=== PATIENT | female | born 1950 | race Caucasian/White ===

== ENCOUNTER 2018-08-22 08:31 | Day surgery (SDC) | payer MEDICARE, OTHER, SELFPAY ==
[2018-08-07 09:50] VITALS: BMI 33.6
--- NOTE | 2018-08-15 08:51 | HP_ITS ---
Intake Vital Signs 08/07/18 Height 5 ft 2 in 08/07/18 Weight: 184 lb 08/07/18 Body Mass Index (BMI) 33.6 08/07/18 Blood Pressure 130/79 H 08/07/18 Blood Pressure Location Rt brachial 08/07/18 Blood Pressure Position Sitting 08/07/18 Respiratory Rate 14 08/07/18 Pulse Rate 67 08/07/18 Pulse Source Monitor 08/07/18 Temperature 98.2 F 08/07/18 Temperature Source Oral 08/07/18 Pulse Ox 96 08/07/18 Oxygen Delivery Method room air Intake Visit Reasons: Positive Cologuard Support Representative Required: No Is patient in pain?: No Allergies ketotifen [From Zaditor] Allergy (Unknown, Verified 08/07/18 09:51) Unknown codeine Allergy (Verified 04/09/14 08:33) Unknown Medications Multivitamins,Therapeutic [Multivitamin] 1 tab PO DAILY 02/08/13 [History Confirmed 08/07/18] Ibuprofen [Motrin] 200 mg PO Q6H PRN PRN #1 02/21/13 [Rx Confirmed 08/07/18] calcium carbonate-vitamin D3 600 mg (1,500 mg)-400 unit capsule 1 cap PO DAILY cap 08/07/18 [History Confirmed 08/07/18] cod liver oil capsule 1 cap PO DAILY 08/07/18 [History Confirmed 08/07/18] garlic 1,000 mg capsule 1,000 mg PO QPC 08/07/18 [History Confirmed 08/07/18] omega-3 fatty acids 1,000 mg capsule 3,000 mg PO DAILY cap 08/07/18 [History Confirmed 08/07/18] PFSH Medical History Arthritis (Acute) Prediabetes (Acute) Hepatitis B (Acute) Lazy eye of left side (Acute) Cervical dysplasia (Acute) DJD (degenerative joint disease) (Acute) Surgical History Hx of appendectomy (Acute) Hx of bilateral hip replacements (Acute) History of surgery on arm (Acute) History of (Acute) History of cone biopsy of cervix (Acute) Family History Brother Heart disease Son Thyroid disorder Sister Thyroid disorder Father Heart disease Social History Smoking Status: Never smoker second hand exposure: No alcohol intake: current alcohol intake frequency: holidays/special occasions only substance use type: does not use caffeine: Yes what type of physical activity do you participate in: none frequency: does not exercise HPI HPI HPI: TERRENCE MERIDA, is a 67 F who presents to the office today for HPI HPI Surgical H&P: Yes HPI: TERRENCE MERIDA, is a 67 F who presents to the office today for evaluation of a positive Cologuard test. Patient has not had any change in her bowel or bladder habits she has not noticed any rectal bleedings her weight has been stable ROS General General: No weight change, appetite, fatigue, colon cancer, breast cancer or weakness HEENT HEENT: No difficulty swallowing, eye injury, eye surgery, swollen glands or hoarseness Endo Endocrine: No thyroid disease, diabetes mellitus, thyroid cancer, Hair loss, heat intolerance or cold intolerance Skin Skin: No rash or changing moles Musc Musculoskeletal: Yes arthritis; no back problems, rheumatoid arthritis, gout or joint pain Cardio Cardiovascular: No murmur, pacemaker, heart disease, atrial fibrillation, high blood pressure, heart attack, heart stent, palpitations, shortness of breat with exertion or chest pain Psych Psychiatric: No depression, anxiety or hearing voices Resp Respiratory: No shortness of breath, No sleep apnea, No cough, No COPD, No asthma, No emphysema, No wheezing Gastro Gastrointestinal: No abdominal pain, No nausea or vomiting, No diarrhea, No constipation, No blood in stool, No acid reflux, No hemorrhoids, No ulcers, No gallbladder problem, No black,tarry stools [place] Hematologic: No blood thinners, No blood disorders, No bleeding, No anemia, No blood clots Neuro Neurologic: No system reviewed and no additional complaints, except as docu, No as per HPI, No abnormal walking, No abnormal hearing, No abnormal movements, No abnormal speech, No behavioral changes, No burning sensations, No confusion, No seizure-like activity, No unsteadiness, No dizziness, No localized weakness, No frequent falls, No headache(s), No lack of coordination, No loss of vision, No memory loss, No numbness, No other visual disturbances, No radiating pain, No restless legs, No sensory deficit, No fainting, No tingling, No tremor(s), No weakness, No other Exam Const General: no acute distress, well developed, well hydrated Orientation: oriented to person, oriented to place, oriented to time [facility] Head: normocephalic, atraumatic Ears: external ears normal Mouth: moist mucous membranes Eyes Sclera: sclerae normal Pupils: normal by confrontation Neck Neck: no lymphadenopathy noted Neck mass: No Thyroid: thyroid normal, symmetrical Chest Chest palpation & inspection: normal inspection of the chest Resp Effort & Inspection: normal respiratory effort Auscultation: clear to auscultation bilaterally Percussion: percussion normal Cardio Rate: regular rate Rhythm: regular rhythm Heart Sounds: no murmurs GI Palpation: soft, no hepatosplenomegaly, no masses, nontender Rectal Exam: other Other: Rectal exam deferred. Extrem General: normal to inspection, no clubbing, cyanosis or edema Assessment & Plan Problems 1. Positive colorectal cancer screening using Cologuard test R19.5 Plan I have discussed the above with the patient. I have offered the patient colonoscopy for evaluation. I have explained the risks/benefits of the procedure and described the procedure. I have discussed the risks with the patient, including but not limited to: infection, bleeding, perforation of the GI tract requiring emergency surgery, inability to complete the procedure, injury to any internal organs, complications of anesthesia, etc. - the patient understands and agrees to proceed. I have answered all the patient's questions to the patient's satisfaction and the patient has no further questions. The patient has been given instructions for the colon cleansing preparation. Orders Orders: Colonoscopy 08/07/18 Coding Level of Care Code Off vis,new,level 3 Diagnoses Positive colorectal cancer screening using Cologuard test R19.5 08/15/18 0851 <Electronically signed by Antoni mejía MD> Date _ Antoni Amado MD I have re-examined the patient. There are no clinical changes since date of exam.
--- NOTE | 2018-08-22 | COLBX_PTH ---
PATIENT: TERRENCE MERIDA LOC: EN U#:[id number] AGE/SX: 67/F ROOM: RE08/22/[address]: Dr. Antoni Amado MD : 1950 BED: DIS: 08/22/2018 SPEC #: [id number] RECD: 08/22/18 14:23 STATUS: MARTIR CHRISTOPHER #: [id number] SATISH: 08/22/18 00:[address]: Antoni Amado DEPT: SURGICAL PATHOLOGY RECD BY: Kieran Gray ENTERED: 08/22/18 14:23 SP TYPE: COLON BX OTHR DR: Susanna Levi PA-C Tissues: Rectum, NOS Procedures: Surgery Specimen Level IV HEADER OPERATION: Colonoscopy (MAC) PRE-OP DIAGNOSIS: Positive Cologard test TISSUE SUBMITTED: Rectum biopsy of polyp MICROSCOPIC DIAGNOSIS Rectal polyp, biopsy: Hyperplastic polyp. CE:may 08/23/18 MICROSCOPIC DESCRIPTION Slides are reviewed. GROSS DESCRIPTION Received in fixative is one container labeled with the patient's name and designated rectal polyp biopsy. The specimen consists of four irregular fragments of scruggs-pink soft tissue that in aggregate measure 0.5 x 0.2 x 0.1 cm. The specimen is totally submitted in one cassette. / CE:may 08/22/18 TC: CPT: 69273
[2018-08-22 08:55] VITALS: BP 117/66; PULSE 66; RESP 16; TEMP 36.6; O2SAT 98; BMI 33.1
[2018-08-22 10:23] VITALS: BP 115/62; BP 117/66; PULSE 65; RESP 18; TEMP 36.8; O2SAT 93
--- NOTE | 2018-08-22 10:24 | OP.ENDO_ITS ---
08/22/2018 Susanna Levi Re : Colonoscopy procedure for Fannie Levi This procedure was performed on Wednesday, August 22, 2018. My impressions and recommendations are as follows: Impressions : - One 4 mm polyp in the rectum, removed with a jumbo cold forceps. Resected and retrieved. - The examination was otherwise normal. Recommendations : - Discharge patient to home. - Resume previous diet. - Continue present medications. - Await pathology results. - Repeat colonoscopy in 3 years for surveillance. - Return to my office in 1 week. My findings are described in the full procedure note, which is enclosed. If I can be of further assistance, please feel free to contact me at Doctor phone number(s): , Fax: [phone], Work: . Sincerely, MD Antoni Crouch MD 08/22/2018 10:23:37 AM This report has been signed electronically.
[2018-08-22 10:30] VITALS: BP 111/58; BP 117/66; PULSE 64; RESP 18; O2SAT 98
[2018-08-22 10:35] VITALS: BP 117/66; BP 119/65; PULSE 69; RESP 18; O2SAT 94
[2018-08-22 10:42] VITALS: BP 114/65; BP 117/66; PULSE 63; RESP 18; TEMP 36.8; O2SAT 96
[2018-08-22 11:14] VITALS: BP 117/66
== END 2018-08-22 11:26 | disposition home or self-care (01) ==
LOC: EN 08:33 → AC 08:36
PROVIDERS: Family Provider Family Medicine; PCP Family Medicine; Referring Provider Surgery; Visit Provider Surgery
PROC: 0DJD8ZZ Inspection of Lower Intestinal Tract, Via Natural or Artificial Opening Endoscopic (ICD-10-PCS; CPT 45378; principal; 2018-08-22 09:55)
DX: K62.1 Rectal polyp (principal); M19.90 Unspecified osteoarthritis, unspecified site
CPT/HCPCS: 45380; 88305; J7120; J1610; J2405

== ENCOUNTER 2021-11-02 06:29 | Day surgery (SDC) | payer MEDICARE, OTHER, SELFPAY ==
[2021-11-02 07:21] VITALS: BP 125/65; PULSE 72; RESP 16; TEMP 36.6; O2SAT 97; BMI 31.8
[2021-11-02] MEDS: Lactated Ringers 1,000 ML 15 ML IV (07:25)
--- NOTE | 2021-11-02 07:30 | COLBX_PTH ---
PATIENT: TERRENCE MERIDA LOC: EN U#:[id number] AGE/SX: 71/F ROOM: RE11/02/[address]: Dr. Darryl Montiel MD : 1950 BED: DIS: 11/02/2021 SPEC #: [id number] RECD: 11/02/21 10:40 STATUS: MARTIR CHRISTOPHER #: [id number] SATISH: 11/02/21 07:[address]: Darryl Montiel DEPT: SURGICAL PATHOLOGY RECD BY: Stephy Patton ENTERED: 11/02/21 12:00 SP TYPE: COLON BX OTHR DR: No Primary Care Phys Tissues: Sigmoid colon biopsy Procedures: Surgery Specimen Level IV HEADER OPERATION: Colonoscopy, polypectomy ? open access (MAC) PRE-OP DIAGNOSIS: History of polyps TISSUE SUBMITTED: Sigmoid polyp biopsy MICROSCOPIC DIAGNOSIS Sigmoid polyp, polypectomy: Fragments of tubular adenoma. JULIA:may 11/03/2021 MICROSCOPIC DESCRIPTION Slides are reviewed. GROSS DESCRIPTION Received in fixative is one container labeled with the patient's name and designated biopsy sigmoid polyp. The specimen consists of two irregular fragments of light scruggs soft tissue that in aggregate measure 0.7 x 0.5 x 0.2 cm. The specimen is totally submitted in one cassette. / SJ:may 11/02/2021 TC:1 CPT: 95600
[2021-11-02 07:49] VITALS: BP 125/65; BP 132/72; PULSE 84; RESP 16; TEMP 36.8; O2SAT 93
--- NOTE | 2021-11-02 07:49 | OP.CCLET_ITS ---
11/02/2021 Susanna Levi Re : Colonoscopy procedure for Fannie Levi This procedure was performed on Tuesday, November 02, 2021. My impressions and recommendations are as follows: Impressions : - One medium polyp in the sigmoid colon, removed with a hot snare. Resected and retrieved. - The examination was otherwise normal on direct and retroflexion views. Recommendations : - Discharge patient to home. - Resume previous diet. - Continue present medications. - Await pathology results. - Repeat colonoscopy in 5 years for surveillance. My findings are described in the full procedure note, which is enclosed. If I can be of further assistance, please feel free to contact me at Doctor phone number(s): , Work: . Sincerely, Darryl Montiel MD 11/02/2021 7:48:45 AM This report has been signed electronically.
--- NOTE | 2021-11-02 07:49 | OP.COLON_ITS ---
Patient Name: Fannie Nieves Procedure Date: 11/02/2021 7:20 AM Date of : 1950 Age: 71 Procedure: Colonoscopy Indications: High risk colon cancer surveillance: Personal history of colonic polyps Providers: Darryl Montiel MD Medicines: Monitored Anesthesia Care Patient Profile: This is a 71 year old female. Refer to note in patient chart for documentation of history and physical. Last Colonoscopy: 3 years ago. Complications: No immediate complications. Procedure: Pre-Anesthesia Assessment: - Prior to the procedure, a History and Physical was performed, and patient medications and allergies were reviewed. The patient's tolerance of previous anesthesia was also reviewed. The risks and benefits of the procedure and the sedation options and risks were discussed with the patient. All questions were answered, and informed consent was obtained. Prior Anticoagulants: The patient has taken no previous anticoagulant or antiplatelet agents. After reviewing the risks and benefits, the patient was deemed in satisfactory condition to undergo the procedure. After I obtained informed consent, the scope was passed under direct vision. Throughout the procedure, the patient's blood pressure, pulse, and oxygen saturations were monitored continuously. The colonoscope was introduced through the anus and advanced to the cecum, identified by appendiceal orifice and ileocecal valve. The colonoscopy was performed without difficulty. The patient tolerated the procedure well. The quality of the bowel preparation was good. Scope In: 7:33:24 AM Scope Withdrawal Time 0 hours 6 minutes 0 seconds Scope Out: 7:44:56 AM Total Procedure Duration Time 0 hours 11 minutes 32 seconds Findings: A medium polyp was found in the sigmoid colon. The polyp was removed with a hot snare. Resection and retrieval were complete. The exam was otherwise without abnormality on direct and retroflexion views. Impression: - One medium polyp in the sigmoid colon, removed with a hot snare. Resected and retrieved. - The examination was otherwise normal on direct and retroflexion views. Recommendation: - Discharge patient to home. - Resume previous diet. - Continue present medications. - Await pathology results. - Repeat colonoscopy in 5 years for surveillance. Procedure Code(s): --- Professional --- 53013, Colonoscopy, flexible; with removal of tumor(s), polyp(s), or other lesion(s) by snare technique Diagnosis Code(s): --- Professional --- Z86.010, Personal history of colonic polyps D12.5, Benign neoplasm of sigmoid colon CPT copyright 2017 [employer]. All rights reserved. The codes documented in this report are preliminary and upon side seam envelope machine operator review may be revised to meet current compliance requirements. Darryl Montiel MD 11/02/2021 7:48:45 AM This report has been signed electronically. Number of Addenda: 0 Note Initiated On: 11/02/2021 7:20 AM
--- NOTE | 2021-11-02 07:54 | H&P.OPEN ---
HPI - General HPI Narrative TERRENCE MERIDA, is a 71 F who presents for surveillance colonoscopy. Patient had a colonoscopy 3 years ago and was found to have a polyp and recommended to have a repeat. Patient denies any abdominal pain or blood in the stool. No family history of colon cancer. [facility] Medical History (Updated 11/02/21 @ 07:[address] Darryl Montiel MD) Arthritis Bite from insect Cervical dysplasia DJD (degenerative joint disease) Hepatitis B History of colon polyps Lazy eye of left side Non-smoker Positive colorectal cancer screening using Cologuard test Prediabetes Wears glasses Home Medications multivitamin with folic acid 400 mcg tablet 1 tab PO DAILY 02/08/13 [History Last Taken Unknown] ibuprofen 200 mg tablet 200 mg PO Q6H PRN PRN Pain ##1 02/21/13 [Rx Last Taken Unknown] calcium carbonate 600 mg-vitamin D3 10 mcg (400 unit) capsule (Calcium 600 with Vitamin D3) 1 cap PO DAILY 08/07/18 [History Last Taken Unknown] cod liver oil 1 cap PO DAILY 08/07/18 [History Last Taken Unknown] garlic 1,000 mg capsule (garlic oil) 1,000 mg PO QPC 08/07/18 [History Last Taken Unknown] omega-3 fatty acids 1,000 mg capsule (Fish Oil Concentrate) 3,000 mg PO DAILY 08/07/18 [History Last Taken Unknown] Allergy/AdvReac Type Severity Reaction Status Date / Time codeine Allergy Unknown Verified 10/26/21 14:18 Family History Brother Heart disease Son Thyroid disorder Sister Thyroid disorder Father Heart disease Surgical History (Updated 10/26/21 @ 14:24 by Nalini Weinstein) History of History of colonoscopy History of cone biopsy of cervix History of surgery on arm Hx of appendectomy Hx of bilateral cataract extraction Hx of bilateral hip replacements Hx of colonoscopy Social History Smoking Status: Never smoker second hand exposure: No alcohol intake: current alcohol intake frequency: holidays/special occasions only substance use type: does not use caffeine: Yes what type of physical activity do you participate in: none frequency: does not exercise Past Medical/Surgical History Planned Operation Planned Operative Procedure/s: OA CSCOPE S.O.S: No Previous Hospitalizations/Surgeries HX Hospitalizations: No HX of Surgeries: HYSTERECTOMY PARTIAL 2001 2000 LEFT ARM PLATE RIGHT THR 12/27/11 [facility] appendectomy left thr 2012 Any Problems With Anesthesia: No You/Your Family Experience Fever (Hyperthermia) With Anes: No Cholinesterase deficiency: No Cardiovascular Hx Chest Pain within Last 2 months: No Hx of Irregular Heartbeat and/or Afib: No Hx Heart Attack: No Hx Congestive Heart Failure: No Hx Rheumatic Fever: No Hx Hypertension: No Hx Internal Defibrillator: No Hx Pacemaker: No Hx Cardiac Catheterization: No Hx Cardiac Surgery/Stents/Etc.: No Hx Stress Test: No HX Edema: No Hx Pain in Legs when Walking/Leg Cramps: No Respiratory Chronic Cough: No HX of Shortness of Breath: No Hoarseness: No Hx Chronic Obstructive Pulmonary Disease (COPD): No Hx Asthma: No Hx Emphysema: No Hx Sleep Apnea: No CPAP: No BIPAP: No Hx Respiratory Tract Infection/Cold (presently): No Do You Snore Loudly (louder than talking or can be heard): No Do You Often Feel Tired/ Fatigued/ Sleepy Dring Daytime?: Yes Has Anyone Observed You Stop Breathing During Sleep?: No Result (for STOP score): Negative Hx Smoking: No Smoking Status: Never smoker Gastrointestinal Hx Gastroesophageal Reflux: No (occ heartburn) Hx Gastrointestinal Disorders: No Hx Gastrointestinal Bleed: No Hx Ulcer: No Hx Hiatal Hernia: No Difficulty Chewing/Swallowing: No Special diet followed at home: No Hx Unplanned Weight Loss of 20#: No HX Unplanned Weight Gain of 20#: No Neurological Hx Seizures: No HX Syncope/Blackout Spells/Unconsciousness: No Hx Transient Ischemic Attacks (TIA): No Hx Multiple Sclerosis: No Hx Parkinson's Disease: No Hx Head/Neck Injury: No Hx Headaches: No Hx Back Injury/Pain: No Recent Onset of Speech Difficulty: No Restless Legs: No Does patient have nerve stimulator: No Blood Disorder Hx Leukemia: No Bleeding Tendencies: No Hx Deep Vein Thrombosis: No Hx High Cholesterol: Yes (supplements) Blood Transmitted Disease: No Hx Hepatitis: No Hx Cirrhosis: No Hx Anemia: No Hx Blood Disorders: No Reproduction : No Is Patient Lactating: No Hx Hysterectomy: Yes Hx Tubal Ligation: No Are You Post Menopause: Yes Genitourinary Hx Renal Disease: No Musculoskeletal Hx Arthritis: Yes Hx Rheumatoid Arthritis: No Hx Gout: No Recent Onset of an Orthopedic Problem: No Endocrine Hx Diabetes: No Thyroid Disease: No Hx Steroid Therapy: No Psycho/Social Hx Substance Use: No Hx Alcohol Use: No Hx Anxiety: No Hx Depression: No Mental Illness: No Hx Dementia: No Miscellaneous Hx Cancer: No Recent Exposure to Contagious Disease: No Hx of C-Diff: No Any Loose Teeth: No Allergies codeine Allergy (Verified 10/26/21 14:18) Unknown Discharge Is Pt Admitted From a [facility], or a [facility]: No After D/C, Where Do you Plan to Go: Return Home From the [facility] History Number of Risk Factors: 1 Vital Signs Vital Signs Vital Signs: 11/02/21 07:21 11/02/21 07:24 11/02/21 07:49 Temperature 98 F 98.2 F Temperature Source Temporal Temporal Pulse Rate 72 84 Respiratory Rate 16 16 Respiratory Pattern Normal Normal Blood Pressure 125/65 H 132/72 H Blood Pressure Mean 85 92 Blood Pressure Source Monitor Monitor Blood Pressure Position Semi-Fowlers Semi-Fowlers Blood Pressure Location Left Arm Left Arm Baseline BP 125/65 Pulse Ox 97 93 Oxygen Delivery Method Room Air Room Air Weight Weight: 174 lb 2.643 oz Body Mass Index (BMI) 31.8 Physical Exam Const alert and oriented x3 Resp normal respiratory effort and normal air movement Cardio regular rate and regular rhythm GI soft to palpation, non-tender and non-distended Assessment & Plan Assessment/Plan (1) History of colon polyps: PLAN: I explained endoscopy in detail to the patient. I explained the risks including but not limited to stroke or heart attack with anesthesia, perforation of the GI tract, bleeding, infection. I explained that any of these could necessitate further emergency surgery. The patient understands and all questions were answered sufficiently. The patient wishes to proceed with procedure. Darryl Montiel MD Pager: [facility] [address] [place] [address], [address] [place] [address] Office: Surgery Risks - Colonoscopy Risks Include but are not Limited To: Risks include but are not limited to: Bleeding, perforation requiring further surgery, inability to complete colonoscopy requiring barium enema.
[2021-11-02 07:55] VITALS: BP 125/65; BP 127/63; PULSE 80; RESP 16; O2SAT 95
[2021-11-02 08:00] VITALS: BP 122/63; BP 125/65; PULSE 74; RESP 16; O2SAT 94
[2021-11-02 08:04] VITALS: BP 125/65; BP 135/80; PULSE 80; RESP 16; TEMP 37.2; O2SAT 95
[2021-11-02 08:21] VITALS: BP 125/65
== END 2021-11-02 09:02 | disposition home or self-care (01) ==
LOC: EN 06:31 → AC 06:34
PROVIDERS: Visit Provider Surgery
PROC: 0DJD8ZZ Inspection of Lower Intestinal Tract, Via Natural or Artificial Opening Endoscopic (ICD-10-PCS; CPT 45378; principal; 2021-11-02 07:25)
DX: Z12.11 Encounter for screening for malignant neoplasm of colon (principal); D12.5 Benign neoplasm of sigmoid colon; Z86.010 Personal history of colon polyps
CPT/HCPCS: 45385; 88305; J7120; J2405

== ENCOUNTER → 2024-12-31 | Outpatient (CLI) | payer MEDICARE, OTHER, SELFPAY ==
--- NOTE | 2024-12-31 09:24 | BD_ITS ---
PROCEDURE: BD/Dexa Bone Density Study
== END | disposition home or self-care (01) ==
DX: Z13.820 Encounter for screening for osteoporosis (principal); Z78.0 Asymptomatic menopausal state
CPT/HCPCS: 77080